=== PATIENT | female | born 2000 | race Caucasian/White ===

== ENCOUNTER → 2019-05-03 | Outpatient (CLI) | payer MEDICAID ==
[~2019-05-03] MED LIST: OMNIPAQUE 300 MG/ML, 10ML VIAL ONE
== END | disposition home or self-care (01) ==
LOC: RAD 13:22
PROVIDERS: ATTEND Specialist
DX: N73.6 Female pelvic peritoneal adhesions (postinfective) (principal)
CPT/HCPCS: 74740; Q9967

== ENCOUNTER 2019-05-20 12:19 | Emergency (ER) | payer MEDICAID ==
[~2019-05-20] VITALS: Ht 160 cm; Wt 99.0 kg
[2019-05-20 12:40] VITALS: BP 125/77
--- NOTE | 2019-05-20 14:27 | NUR ---
NOT IN LOBBY
--- NOTE | 2019-05-20 14:46 | NUR ---
NOT IN LOBBY
--- NOTE | 2019-05-20 15:07 | NUR ---
NO ANSWER FOR ROOM CALL X 3 DEPARTED FROM SYSTEM WITH ELOPED STATUS
--- NOTE | 2019-05-20 15:07 | NUR ---
NIL X 3@ [phone]
== END 2019-05-20 15:09 | disposition left against medical advice (07) ==
LOC: ED 15:00
DX: S39.012A Strain of muscle, fascia and tendon of lower back, initial encounter (principal); S29.012A Strain of muscle and tendon of back wall of thorax, initial encounter; X58.XXXA Exposure to other specified factors, initial encounter; Y93.89 Activity, other specified; Y92.89 Other specified places as the place of occurrence of the external cause; Y99.8 Other external cause status
CPT/HCPCS: 99281

== ENCOUNTER 2020-01-02 01:18 | Outpatient (CLI) | payer SELFPAY ==
[~2020-01-02] VITALS: Ht 160 cm; Wt 87.7 kg
[2020-01-02 01:41] VITALS: BP 114/74
[2020-01-02 01:57] LABS: AMPHETAMINE SCREEN, URINE Negative (Negative); BARBITURATE SCREEN, URINE Negative (Negative); BENZODIAZEPINE SCREEN, URINE Negative (Negative); CANNABINOID SCREEN, URINE Negative (Negative); COCAINE SCREEN, URINE Negative (Negative); METHADONE SCREEN, URINE Negative (Negative); MICROSCOPIC INDICATED; OPIATE SCREEN, URINE Negative (Negative)
== END 2020-01-02 02:49 | disposition home or self-care (01) ==
LOC: LDOP 01:18
PROVIDERS: ATTEND Obstetrics & Gynecology
DX: O26.893 Other specified pregnancy related conditions, third trimester (principal); R10.9 Unspecified abdominal pain; M54.5 Low back pain; Z3A.32 32 weeks gestation of pregnancy
CPT/HCPCS: 59025; 80307; 81001; 87086